=== PATIENT | female | born 1955 | race Caucasian/White ===

== ENCOUNTER 2022-03-31 07:36 | Inpatient (IN) | payer MEDICARE, SELFPAY ==
[2022-03-31] VITALS (22 sets, daily range): BP systolic 107–174; BP diastolic 75–108; PULSE 87–117; RESP 0–20; TEMP 36.3–37.3; O2SAT 3–100; BMI 32.1
--- NOTE | 2022-03-31 | GALL_PTH ---
PATIENT: JOVITA DREW LOC: MS3 U#:[id number] AGE/SX: 67/F ROOM: [facility] RE03/31/[address]: Dr. Russell Giraldo MD : [id number] BED: 1 DIS: 04/02/2022 SPEC #: [id number] RECD: 04/01/22 08:11 STATUS: DAVE MOSLEYLydia #: [id number] LINA: 03/31/22 00:[address]: Russell Giraldo DEPT: SURGICAL PATHOLOGY RECD BY: Eh Allen ENTERED: 04/01/22 11:47 SP TYPE: CASSY MCCLENDON DR: Dr. Simran Oliveira DO Tissues: Gallbladder, NOS Procedures: Surgery Specimen Level III HEADER OPERATION: Laparoscopic cholecystectomy with IOC PRE-OP DIAGNOSIS: Acute cholecystitis TISSUE SUBMITTED: Gallbladder MICROSCOPIC DIAGNOSIS Gallbladder, cholecystectomy: Acute cholecystitis with denudation of mucosa and cholelithiasis. AM:rqoue 04/02/2022 MICROSCOPIC DESCRIPTION Slides are reviewed. GROSS DESCRIPTION Received is one container labeled with the patient's name and designated gallbladder. The specimen consists of a previously opened gallbladder measuring 8.5 cm in length and 4 cm in diameter. The gallbladder appears to be disrupted. Obvious cystic duct could not be identified. The external surface is pink-ta, smooth and glistening for the most part. Focally it is granular, hemorrhagic and contains cautery artifact. The gallbladder contains a small amount of hemorrhagic ta material. The mucosa is ulcerated and congested. Present in the gallbladder and also in the container are multiple brownish-black multifaceted stones measuring in aggregate 8 x 8 x 2 cm and 0.4 to 0.7 cm in greatest dimension. A few detached fragments of hemorrhagic tissue are also noted in the container. The gallbladder wall measures up to 0.8 cm in thickness. Carding Supervisor sections are submitted in three cassettes. / SJ:roque 04/01/2022 TC:2 CPT: 94104
--- NOTE | 2022-03-31 08:17 | EKG12_ITS ---
Test Reason : ABD PAIN Blood Pressure : / mmHG Vent. Rate : 093 BPM Atrial Rate : 093 BPM P-R Int : 158 ms QRS Dur : 072 ms QT Int : 382 ms P-R-T Axes : 017 -01 -07 degrees QTc Int : 474 ms Normal sinus rhythm Normal ECG Confirmed by DONG GUTIERREZ, ANY ([id number]), newspaper photo editor KERI MANTILLA ([id number]) on 04/01/2022 9:21:34 AM Referred By: ALIDA Confirmed By:ANY UMANA MD
--- NOTE | 2022-03-31 08:18 | NURSING ---
NO OLD EKGS
[2022-03-31] MEDS: Ondansetron 4 MG/2 ML Vial IV ×2 (08:30→22:29)
[2022-03-31] MEDS: 0.9% Normal Saline 1,000 ML 1000 ML IV (08:30)
--- NOTE | 2022-03-31 08:34 | US_ITS ---
STUDY: ABDOMINAL ULTRASOUND - RIGHT UPPER QUADRANT REASON FOR VISIT: Female, 67 years old RUQ pain, vomiting TECHNIQUE: Ultrasound evaluation of the right upper quadrant was performed with real-time and static edwards-scale imaging. TECHNICAL QUALITY: Adequate. COMPARISON: None. FINDINGS: Liver: The liver is enlarged and measures 18.4 cm. There is increased echogenicity consistent with fatty infiltration. The bile ducts are within normal limits. There is hepatic color flow. The direction of portal flow is hepatopetal. There is no demonstrated mass lesion. Gallbladder: Normal distended gallbladder. The gallbladder wall is thickened and measures 4.2 mm. There is a positive sonographic Bae''s sign. There is a trace of pericholecystic fluid. There are multiple echogenic structures within the gallbladder, consistent with multiple gallstones. Small amount of sludge is seen within the gallbladder lumen. Common Bile Duct (C.B.D.): The common bile duct measures 4.9 mm. Pancreas: Normal size of the head, body and tail of the pancreas. There is normal echogenicity of the pancreas. There is no demonstrated pancreatic mass or cyst. Right Kidney: Normal size of the right kidney. The right kidney measures 10.2 cm x 5.2 cm x 4.9 cm. Normal renal cortex. The right cortex measures 2.2 cm. There is a 1.9 cm x 2.1 cm x 2.2 cm right renal cyst. There is no right hydronephrosis. US/Gallbladder IMPRESSION: Mild hepatomegaly and fatty infiltration of the liver. Multiple gallstones. Thickened gallbladder wall. Small amount of pericholecystic fluid. Right renal cyst. Electronically Signed: Jeremy Velazquez MD at 9:57 EDT ,
[2022-03-31 08:39] LABS: Absolute Lymphocyte Count 1.67 X10^3/uL (0.83-4.51); Absolute Neutrophil Count 11.6 X10^3/uL (2.0-7.7); Basophil# 0.05 X10^3/uL; Basophil% 0.3 % (0-1); Eosinophil# 0.01 X10^3/uL; Eosinophils% 0.1 % (0-5); Hematocrit 45.5 % (37-47); Hemoglobin 15.3 g/dL (12.0-15.0); Lymphocyte # 1.67 X10^3/ul (0.83-4.51); Lymphocyte % 11.6 % (19-41); Mean Corp Hgb Conc 33.6 g/dL (32-36); Mean Corpuscular Hgb 31.8 pg (27.0-32.0); Mean Corpuscular Volume 94.6 fL (81-99); Mean Platelet Vol. 10.9 fl (6.2-12.0); Monocyte# 1.07 X10^3/uL; Monocyte% 7.4 % (0-10); NRBC Flagged by Analyzer 0 % (0-5); Neutrophil # 11.58 X10^3/uL (2.7-7.7); Neutrophil % 80.3 % (47-70); POSITIVE COUNT YES; RBC Distribution Width CV 12.7 % (11.6-14.6); Red Blood Count 4.81 M/mm3 (4.2-5.4); White Blood Count 14.4 K/mm3 (4.4-11.0)
[2022-03-31] MEDS: Morphine 4 MG/ML Syringe IV ×2 (08:40→10:51)
[2022-03-31 08:42] LABS: Differential Indicated SCAN CRITERIA MET
[2022-03-31 08:56] LABS: ALB/GLOB Ratio 0.8 RATIO (0.9-2.4); AST(SGOT) 118 U/L (15-37); Alanine Aminotransfer ALT/SGPT 68 U/L (13-56); Albumin, Serum 3.8 g/dL (3.2-5.0); Alkaline Phosphatase 145 U/L (45-117); Anion Gap 6 (5-15); BUN 10 mg/dL (7-18); BUN/Creat Ratio 11.4 RATIO (10-20); Calcium,Total 9.7 mg/dL (8.5-10.1); Chloride 100 mmol/L (98-107); Creatinine, Serum 0.88 mg/dL (0.55-1.02); EST Glomerular Filtration Rate 68 mL/min (>60); Est Glom Filt Rate - Afr Amer 83 mL/min (>60); Estimated Creatinine Clearance 49.74 ml/min; Globulin 4.6 g/dL (2.2-4.2); Glucose 180 mg/dL (74-106); Lipase 97 U/L (73-393); Potassium 3.7 mmol/L (3.5-5.1); Protein, Total 8.4 g/dL (6.4-8.2); Sodium Level 136 mmol/L (136-145); Troponin-I HS 4 pg/mL (3.0-54.0)
[2022-03-31 10:00] LABS: Mucous, Urine 0 SEEN /hpf (<or=2+); Red Blood Cells-Urine 0 SEEN /hpf (0-5); Squamous Epithelial Cells - UA 0 SEEN /hpf (5-10)
[2022-03-31 10:08] LABS: Color, Urine Yellow (Yellow); Glucose, Dipstick Normal (Normal); Leukocyte Esterase-Dipstick 25 /ul (Negative); Nitrite-Dipstick Negative (Negative); Occult Blood-Urine Negative /ul (Negative); Protein-Dipstick 30 mg/dl (Negative); Specific Gravity, Urine 1.015 (1.002-1.030); Urine Bilirubin Dipstick Negative (Negative); Urine Clarity Clear (Clear); Urine Urobilinogen 12 mg/dl (Normal)
[2022-03-31 10:12] LABS: Ketone-Dipstick 150 mg/dl (Negative)
[2022-03-31 10:14] LABS: Bacteria RARE /hpf (None Seen); White Blood Cells 0-5 SEEN /hpf (0-5)
[2022-03-31 10:15] LABS: Amorphous Sediment 1+
[2022-03-31] MEDS: 0.9% Normal Saline 1,000 ML 150 ML IV ×2 (10:51→20:00)
--- NOTE | 2022-03-31 11:05 | EDS_ITS ---
HPI HPI - GI History of Present Illness Chief Complaint: Abd Pain Informant: patient Narrative Narrative: Patient is a 67-year-old female that denies any significant past medical history presenting with worsening epigastric and right upper quadrant abdominal pain. She states been going on for the past 3 to 4 days. She is had associated sweating. She did take a home COVID test that was negative. She denies any change in bowel movements. Describes the pain as a pressure. Denies any blood in her vomit or her stool. Denies any significant chest pain itself. Has never had a thing like this before. Does have a history of prior left salpingo- oophorectomy but denies any other abdominal surgery. No other complaints at this time. [facility] Medical History Seasonal allergies Home Medications albuterol sulfate 90 mcg/actuation aerosol inhaler 2 puff inhalation PRN PRN sob/wheezing 03/31/22 [History Last Taken Unknown] loratadine-pseudoephedrine ER 10 mg-240 mg tablet,extended [id number] (Loratadine-D) 1 tab PO DAILY 03/31/22 [History Last Taken Unknown] valacyclovir 500 mg tablet 1 tab PO PRN PRN herpes 03/31/22 [History Last Taken Unknown] Allergy/AdvReac Type Severity Reaction Status Date / Time Penicillins Allergy FROM Verified 03/31/22 07:38 CHILDHOOD Surgical History H/O tubal ligation Hx of breast reduction, elective Hx of tonsillectomy Social History Smoking Status: Never smoker ROS ROS ED Constitutional Constitutional ED: Reports chills and sweats; Denies fever(s) ENT ENT ED: Denies rhinorrhea or sore throat Cardiovascular Cardiovascular: Denies chest pain or palpitations Respiratory/Chest Respiratory/Chest: Denies cough or dyspnea Gastrointestinal Gastrointestinal: Reports abdominal pain, nausea and vomiting; Denies constipation or diarrhea Genitourinary Genitourinary ED: Denies dysuria or hematuria Musculoskeletal Musculoskeletal: Denies arthralgias or myalgias Integumentary Denies rash Neurologic Neurologic: Denies headache(s) or weakness Psychiatric Psychiatric: Denies anxiety Hematologic/Lymphatic Hematologic/Lymphatic: Denies easy bleeding or easy bruising EXAM Physical Exam Const Vital Signs: 03/31/22 07:38 03/31/22 09:46 Temperature 97.4 F L Temperature Source Temporal Pulse Rate 114 H 92 Respiratory Rate 17 20 H Blood Pressure 134/104 H 174/105 H Blood Pressure Mean 114 128 Pulse Ox 98 92 Oxygen Delivery Method Room Air Room Air Positive well nourished and well developed Constitutional Narrative: Uncomfortable appearing, retching in the emergency room General Appearance ED: well developed HEENT Reports dry mucous membranes normocephalic and atraumatic Mouth ED: Yes dry mucous membranes Mouth: dry mucous membranes Eyes PERRL Neck supple Resp normal respiratory effort and clear to auscultation bilaterally Cardio regular rate, regular rhythm and no murmurs GI non-distended Inspection: Negative for abdominal distention Auscultation: hypoactive bowel sounds Palpation: tender epigastric, RUQ and Bae's sign and guarding; Negative for rigid or rebound tenderness present Back/Spine no CVA tenderness Neuro moves all extremities and no sensory deficits noted Motor Exam: Negative for general weakness Psych mental status grossly normal and thought process normal Skin no wounds Rashes: no rashes MDM MDM MDM Narrative Medical decision making narrative: Patient is evaluated for 3 to 4 days of worsening right upper quadrant epigastric abdominal pain. Patient peers uncomfortable upon initial exam. She is given IV fluids, morphine and Zofran. She does have some improvement of her symptoms. Cardiac as well as GI work-up obtained. She does have a leukocytosis of 14.4. She slightly hemoconcentrated with a hemoglobin of 15.3. BMP is normal however liver panel does show an elevated total bili of 2.8 as well as a transaminitis and an elevated alkaline phosphatase. High since he troponin is 4 and EKG is normal. I do not suspect ACS as a cause of her symptoms. Ketones are elevated in her urine however no signs of infection in the urine. Right upper quadrant ultrasound is concerning for cholecystitis as she has multiple gallstones, thickened gallbladder wall and pericholecystic fluid. No comment on dilated common bile duct however with an elevated bili and transaminitis I am concerned that she could have choledocholithiasis. Patient is placed on cefepime as she does have a penicillin allergy and consult to surgery obtained. Dr. Janel Grace evaluated the patient in the ER and will admit to his service for further management. Patient is redosed with morphine in the emergency room and started on maintenance fluids. She is kept NPO. Will be admitted to the hospital. Lab Data Attestation: I reviewed the patient's lab results. Labs: Laboratory Results - last 24 hr 03/31/22 03/31/22 03/31/22 08:00 08:00 09:55 WBC 14.4 H RBC 4.81 Hgb 15.3 H Hct 45.5 MCV 94.6 MCH 31.8 MCHC 33.6 RDW Std Deviation 44.0 H RDW Coeff of Pepper 12.7 Plt Count TNP MPV 10.9 Immature Gran % (Auto) 0.300 Neut % (Auto) 80.3 H Lymph % (Auto) 11.6 L [place] % (Auto) 7.4 Eos % (Auto) 0.1 Baso % (Auto) 0.3 Absolute Neuts (auto) 11.6 H Absolute Lymphs (auto) 1.67 Nucleated RBC % 0 Sodium 136 Potassium 3.7 Chloride 100 Carbon Dioxide 30.0 Anion Gap 6 BUN 10 Creatinine 0.88 Estim Creat Clear Calc 49.74 Est GFR (MDRD) Af Amer 83 Est GFR (MDRD) Non-Af 68 BUN/Creatinine Ratio 11.4 Glucose 180 H Calcium 9.7 Total Bilirubin 2.80 H AST 118 H ALT 68 H Alkaline Phosphatase 145 H Troponin I High Sens 4 Total Protein 8.4 H Albumin 3.8 Globulin 4.6 H Albumin/Globulin Ratio 0.8 L Lipase 97 Urine Color Yellow Urine Clarity Clear Urine pH 8.0 Ur Specific [place] 1.015 Urine Protein 30 H Urine Glucose (UA) Normal Urine Ketones 150 A* Urine Occult Blood Negative Urine Nitrite Negative Urine Bilirubin Negative Urine Urobilinogen 12 H Ur Leukocyte Esterase 25 H Urine RBC 0 SEEN Urine WBC 0-5 SEEN Ur Squamous Epith Cells 0 SEEN Amorphous Sediment 1+ Urine Bacteria RARE Urine Mucus 0 SEEN Radiography Diagnostic Testing: Clinical Impression(s) from Imaging Studies Gallbladder Ultrasound 03/31/22 08:34 IMPRESSION: Mild hepatomegaly and fatty infiltration of the liver. Multiple gallstones. Thickened gallbladder wall. Small amount of pericholecystic fluid. Right renal cyst. Electronically Signed: Jeremy Velazquez MD at 9:57 EDT , Rhythm Strip Rhythm Strip: Sinus Rhythm Rate: 93 Ectopy: None EKG Initial EKG: Attestation: I personally reviewed and interpreted this EKG as follows: Interpretation: Sinus Rhythm Comments: Normal sinus rhythm at a rate of 93 Normal axis Normal intervals Normal ST segments Discharge Plan Triage Chief Complaint: Abd Pain ED Provider: Antonietta Bocanegra Dx/Rx/DC Orders Clinical Impression: Choledocholithiasis, Transaminitis, Elevated bilirubin, Abdominal pain, acute, right upper quadrant Prescriptions: No Action valacyclovir 500 mg tablet 1 tab PO PRN PRN (Reason: herpes) Label Comments: TAKE 1 TABLET BY MOUTH EVERY 12 HOURS FOR 3 TO 5 DAYS NEEDED AT ONSET OF SYMPTOMS loratadine-pseudoephedrine [Loratadine-D] 10-240 mg tablet extended release 24 hr 1 tab PO DAILY albuterol sulfate 90 mcg/actuation HFA aerosol inhaler 2 puff INHALATION PRN PRN (Reason: sob/wheezing) Primary Care Provider: Simran Oliveira Referrals: Simran Oliveira DO [Primary Care Provider] - Disposition Disposition: Acute Care [facility]
--- NOTE | 2022-03-31 11:10 | PCM.HP.STD ---
HPI - General HPI Narrative JOVITA DREW, is a 67 F who presents with abdominal pain. The patient reports has been having epigastric and right upper quadrant pain for at least 6 days. She says it is getting worse and is building. She has nausea and dry heaves. Patient does not note any fevers or chills. [facility] Medical History Seasonal allergies Home Medications albuterol sulfate 90 mcg/actuation aerosol inhaler 2 puff inhalation PRN PRN sob/wheezing 03/31/22 [History Last Taken Unknown] loratadine-pseudoephedrine ER 10 mg-240 mg tablet,extended [id number] (Loratadine-D) 1 tab PO DAILY 03/31/22 [History Last Taken Unknown] valacyclovir 500 mg tablet 1 tab PO PRN PRN herpes 03/31/22 [History Last Taken Unknown] Allergy/AdvReac Type Severity Reaction Status Date / Time Penicillins Allergy FROM Verified 03/31/22 07:38 CHILDHOOD Surgical History H/O tubal ligation Hx of breast reduction, elective Hx of tonsillectomy Social History Smoking Status: Never smoker ROS Constitutional Constitutional: Denies anorexia, fatigue or fever(s) Eyes Eyes: Denies blurry vision ENT HEENT: Denies abnormal hearing Cardiovascular Cardiovascular: Denies chest pain Respiratory/Chest Respiratory/Chest: Denies cough or dyspnea Gastrointestinal Gastrointestinal: Reports abdominal pain, nausea and vomiting; Denies constipation, diarrhea, melena or rectal bleeding Genitourinary Genitourinary: Denies change in urinary stream Musculoskeletal Musculoskeletal: Denies abnormal gait Integumentary Integumentary: Denies jaundice or new lesions Neurologic Neurologic: Denies abnormal gait Psychiatric Psychiatric: Denies anxiety Endocrine Endocrinology: Denies flushing Hematologic/Lymphatic Hematologic/Lymphatic: Denies easy bleeding Vital Signs Vital Signs Vital Signs: 03/31/22 07:38 03/31/22 09:46 Temperature 97.4 F L Temperature Source Temporal Pulse Rate 114 H 92 Respiratory Rate 17 20 H Blood Pressure 134/104 H 174/105 H Blood Pressure Mean 114 128 Pulse Ox 98 92 Oxygen Delivery Method Room Air Room Air Weight Weight: 175 lb 11.335 oz Body Mass Index (BMI) 32.1 Physical Exam Const oriented x3 Resp normal respiratory effort Cardio regular rate and regular rhythm GI soft to palpation Palpation: tender epigastric, RUQ and Bae's sign Extremity normal to inspection Results Lab / Micro Data Result Diagrams: 03/31/22 08:00 03/31/22 08:00 Labs: Laboratory Results - last 24 hr 03/31/22 08:00: WBC 14.4 H, RBC 4.81, Hgb 15.3 H, Hct 45.5, MCV 94.6, MCH 31.8, MCHC 33.6, RDW Std Deviation 44.0 H, RDW Coeff of Pepper 12.7, Plt Count TNP, MPV 10.9, Immature Gran % (Auto) 0.300, Neut % (Auto) 80.3 H, Lymph % (Auto) 11.6 L, [place] % (Auto) 7.4, Eos % (Auto) 0.1, Baso % (Auto) 0.3, Absolute Neuts (auto) 11.6 H, Absolute Lymphs (auto) 1.67, Nucleated RBC % 0 03/31/22 08:00: Sodium 136, Potassium 3.7, Chloride 100, Carbon Dioxide 30.0, Anion Gap 6, BUN 10, Creatinine 0.88, Estim Creat Clear Calc 49.74, Est GFR (MDRD) Af Amer 83, Est GFR (MDRD) Non-Af 68, BUN/Creatinine Ratio 11.4, Glucose 180 H, Calcium 9.7, Total Bilirubin 2.80 H, AST 118 H, ALT 68 H, Alkaline Phosphatase 145 H, Troponin I High Sens 4, Total Protein 8.4 H, Albumin 3.8, Globulin 4.6 H, Albumin/Globulin Ratio 0.8 L, Lipase 97 03/31/22 09:55: Urine Color Yellow, Urine Clarity Clear, Urine pH 8.0, Ur Specific [place] 1.015, Urine Protein 30 H, Urine Glucose (UA) Normal, Urine Ketones 150 A*, Urine Occult Blood Negative, Urine Nitrite Negative, Urine Bilirubin Negative, Urine Urobilinogen 12 H, Ur Leukocyte Esterase 25 H, Urine RBC 0 SEEN, Urine WBC 0-5 SEEN, Ur Squamous Epith Cells 0 SEEN, Amorphous Sediment 1+, Urine Bacteria RARE, Urine Mucus 0 SEEN Micro: Microbiology 03/31/22 08:40 Nasal Secretion SARS-CoV-2 Antigen (Rapid) - Final Radiology Impression Gallbladder Ultrasound 03/31/22 08:34 IMPRESSION: Mild hepatomegaly and fatty infiltration of the liver. Multiple gallstones. Thickened gallbladder wall. Small amount of pericholecystic fluid. Right renal cyst. Electronically Signed: Jeremy Velazquez MD at 9:57 EDT , Assessment & Plan Assessment/Plan (1) Acute cholecystitis: PLAN: The patient has ultrasound showing thickened gallbladder with cholelithiasis and sludge in the gallbladder. She likely has acute cholecystitis with possible choledocholithiasis. Her AST and ALT are normal and her bilirubin is elevated and this may indicate that she recently passed a stone. I recommend laparoscopic cholecystectomy with cholangiography. I also discussed possible partial cholecystectomy due to the length of symptomatology and the amount of inflammation. I did discuss that this may necessitate ERCP with stent placement. I also discussed that she may need ERCP if there are stones on the cholangiogram. I discussed the procedure in detail with the patient. I discussed the risks, benefits, and alternatives of the procedure. I discussed the risks including but not limited to bleeding, infection, injury to surrounding organs such as the liver, bile duct, bowels. I did discuss the possibility of having to convert to an open procedure as well as the possibility that if any injuries occurred this may necessitate further surgery at a tertiary care center. Russell Giraldo MD Pager: [facility] [address] [place] [address], [address] [place] [address] Office:
--- NOTE | 2022-03-31 11:11 | NURSING ---
MED SURG [facility] CHOLEDOCHOLITHIASIS
[2022-03-31 11:59] LABS: Basophil 0 % (0-1); Blast 0 % (0-0); Eosinophil 0 % (0-5); Lymphocyte 0 % (19-41); Metamyelocyte 0 % (0-1); Monocyte 0 % (0-10); Myelocyte 0 % (0-0); Neutrophil-Band 0 % (0-5); Neutrophil-Segmented 0 % (47-70); Other WBC Type 0 %; Plasma Cell 0 %; Promyelocyte 0 % (0-0); Total Cells Counted 0 (MANUAL DIFF)
[2022-03-31 12:00] LABS: POSITIVE DIFFERENTIAL YES
--- NOTE | 2022-03-31 13:20 | RAD_ITS ---
HISTORY: pre op. TECHNIQUE: XR Chest 1 View. COMPARISON: None. FINDINGS: CARDIOMEDIASTINAL BORDERS: Cardiac silhouette within normal limits in size. Tortuous aorta. LUNGS: Low lung volumes with mild linear and patchy bibasilar opacities. PLEURA: No pleural effusion or pneumothorax seen. OSSEOUS STRUCTURES: Unremarkable. RAD/Chest 1 View (Portable) IMPRESSION: Mild bibasilar atelectasis or inflammation. Electronically Signed: Saba Willett MD at 13:43 EDT ,
--- NOTE | 2022-03-31 14:40 | NURSING ---
pt to surgery
[2022-03-31] MEDS: Clindamycin 900 MG/50 ML BAG 75 MG IV (15:37)
--- NOTE | 2022-03-31 15:50 | RAD_ITS ---
CLINICAL HISTORY: Female, 67 years old. Abdominal pain PROCEDURE: CHOLANGIOGRAM - intraoperative FLUOROSCOPY TIME (if supplied): (0:50) minutes/seconds TECHNIQUE: (All elements of maximal sterile barrier technique followed, including US elements as applicable) A cannula is seen within the cystic duct remnant in a cine run of a mid Intraop Cholangiogram spelled for interpretation. FINDINGS: There are 2 filling defects within the distal common bile duct worrisome for choledocholithiasis. There is passage from the skull around the stones through the ampulla into the duodenum. RAD/Cholangiogram/ O R,Initial IMPRESSION: Suspect 2 stones in the distal common bile duct. Electronically Signed: Quan Romero MD at 17:14 EDT ,
[2022-03-31] MEDS: Bupivacaine 0.25% 30 ML Vial (17:22)
--- NOTE | 2022-03-31 17:25 | PCM.OPRPT ---
Report of Operation Date of Procedure: 03/31/22 Pre-Operative Diagnosis: Acute cholecystitis Post-Operative Diagnosis: Acute cholecystitis and choledocholithiasis Surgery/Procedure Performed:: Laparoscopic cholecystectomy with cholangiogram Specimen's removed: Gallbladder and stones Drains: YAEL to bulb suction Description of Procedure: After obtaining informed consent patient was brought back to the operating room. General anesthesia was induced. The abdomen was prepped and draped in usual sterile fashion. A small midline incision was made superior to the umbilicus and deepened to the level of fascia. The fascia was elevated and incised. Next the peritoneum was elevated and incised in the same fashion. Finger sweep was performed and the Ward trocar was placed into the abdomen. The balloon was inflated. The abdomen was inflated to 15 mmHg. Next a camera was introduced into the abdomen and the abdomen was inspected. Next under direct visualization three 5-mm ports were placed one subxiphoid and 2 subcostal. Next the gallbladder was elevated and retracted toward the right shoulder. The peritoneum was stripped from the gallbladder. The infundibulum was located and retracted laterally. The gallbladder was extremely inflamed. The epigastric port was upsized to a 12 mm port. It was aspirated of its contents but this still allowed for minimal grasping. Next the triangle of Calot was dissected and the cystic duct and cystic artery were identified. Cholangiograms were performed. A small alyssa was made in the cystic duct and then a small alyssa was made right upper quadrant and a Ranfac catheter was placed in the abdomen is into the cystic duct. A clip was placed over this. Under fluoroscopy contrast was instilled into the gallbladder and the common duct, cystic duct as well as proximal hepatic ducts were identified. There was good filling of the duodenum. There were 2 large filling defects noted in the common bile duct. The clip was removed as well as the Ranfac and the infundibulum was grasped once more. Three hemolock clips were placed across the cystic duct. The cystic duct was then divided leaving 2 clips on the stump. The cystic artery was clipped and divided in the same fashion. The hook cautery was then used to take the gallbladder off of the gallbladder bed. Hemostasis was obtained. There was spillage of a lot of stones and these were retrieved and placed into the bag. There was some bleeding in the proximal gallbladder fossa and a Surgicel sheet was placed there and this provided good hemostasis. Gallbladder fossa was irrigated and no active bleeding or bile leakage was noted. A drain was then placed through the lateral port and placed into the gallbladder fossa and sutured to the skin. Next the camera was introduced in the subxiphoid port. An Endopouch bag was placed through the umbilical port and the gallbladder was placed into it. The gallbladder was then removed through the umbilical incision. The camera was then reinserted through the umbilical port. The gallbladder fossa was inspected once more and noted to be hemostatic with no leaking bile. The abdomen was suctioned dry. The 12 mm port epigastric port was removed. Using a Kenney Tilley needle and 0 Vicryl suture was used to close the fascia in this incision. The 5 mm ports were removed under direct visualization. The umbilical port was then removed and the air was removed from the abdomen. Next using an 0 Vicryl suture the umbilical fascia was closed in a [id number] fashion. The umbilical port site was irrigated local anesthetic was administered to all the incisions. All the incisions were closed with interrupted subcuticular 4-0 Monocryl sutures followed by Steri-Strips and dressings. The patient was awoken and taken to PACU in stable condition. Patient will be scheduled for ERCP with stone removal tomorrow. Admit VTE Documentation VTE Mechan Device Prophylaxis: SCD's
[2022-03-31] MEDS: Morphine 2 MG/ML Syringe IV (22:40)
[2022-04-01] VITALS (11 sets, daily range): BP systolic 101–125; BP diastolic 64–81; PULSE 73–103; RESP 16–18; TEMP 36.6–36.9; O2SAT 92–100; BMI 32.1
[2022-04-01] MEDS: 0.9% Normal Saline 1,000 ML 150 ML IV ×3 (03:00→23:09)
[2022-04-01 04:32] LABS: Absolute Lymphocyte Count 0.68 X10^3/uL (0.83-4.51); Absolute Neutrophil Count 9.5 X10^3/uL (2.0-7.7); Basophil# 0.01 X10^3/uL; Basophil% 0.1 % (0-1); Hemoglobin 12.2 g/dL (12.0-15.0); Lymphocyte # 0.68 X10^3/ul (0.83-4.51); Lymphocyte % 6.5 % (19-41); Mean Corp Hgb Conc 34.9 g/dL (32-36); Mean Corpuscular Hgb 33.4 pg (27.0-32.0); Mean Corpuscular Volume 95.9 fL (81-99); Mean Platelet Vol. 11.2 fl (6.2-12.0); Monocyte# 0.28 X10^3/uL; Monocyte% 2.7 % (0-10); NRBC Flagged by Analyzer 0 % (0-5); Neutrophil # 9.45 X10^3/uL (2.7-7.7); Neutrophil % 90.4 % (47-70); Platelet Count 144 K/mm3 (150-450); RBC Distribution Width CV 13.2 % (11.6-14.6); RBC Distribution Width SD 46.9 fl (35.1-43.9); Red Blood Count 3.65 M/mm3 (4.2-5.4); White Blood Count 10.5 K/mm3 (4.4-11.0)
[2022-04-01 04:56] LABS: ALB/GLOB Ratio 0.7 RATIO (0.9-2.4); AST(SGOT) 279 U/L (15-37); Alanine Aminotransfer ALT/SGPT 254 U/L (13-56); Albumin, Serum 2.7 g/dL (3.2-5.0); Alkaline Phosphatase 142 U/L (45-117); Anion Gap 7 (5-15); BUN 11 mg/dL (7-18); BUN/Creat Ratio 15.5 RATIO (10-20); Calcium,Total 8.3 mg/dL (8.5-10.1); Chloride 106 mmol/L (98-107); Creatinine, Serum 0.71 mg/dL (0.55-1.02); EST Glomerular Filtration Rate 87 mL/min (>60); Est Glom Filt Rate - Afr Amer 106 mL/min (>60); Estimated Creatinine Clearance 43.77 ml/min; Globulin 3.8 g/dL (2.2-4.2); Glucose 154 mg/dL (74-106); Potassium 4.1 mmol/L (3.5-5.1); Protein, Total 6.5 g/dL (6.4-8.2); Sodium Level 139 mmol/L (136-145)
--- NOTE | 2022-04-01 06:34 | PN.SURG_ITS ---
Subjective Subjective Patient reports feeling better. She is not passing flatus. Objective Data Objective Data Vital Signs: Vital Signs Temp Pulse Resp BP Pulse Ox O2 Del Method O2 Flow Rate 97.9 F 81 18 111/80 93 Room Air 2 04/01/22 04:04 04/01/22 04:04 04/01/22 04:04 04/01/22 04:04 04/01/22 04:04 04/01/22 04:04 03/31/22 22:04 Oxygen Flow Rate (L/min) 2 Oxygen Delivery Method Room Air Weight: 176 lb Body Mass Index (BMI) 32.1 Intake & Output: Intake and Output for Last 24 Hours 03/30/22 03/31/22 04/01/22 23:59 23:59 23:59 Intake Total 1747.5 / 1747.5 1000 / 1000 Output Total 10 100 / 100 Balance 1737.5 / 1737.5 900 / 900 Lab / Micro Data Result Diagrams: 04/01/22 03:56 04/01/22 03:56 Labs: Laboratory Results - last 24 hr 03/31/22 08:00: WBC 14.4 H, RBC 4.81, Hgb 15.3 H, Hct 45.5, MCV 94.6, MCH 31.8, MCHC 33.6, RDW Std Deviation 44.0 H, RDW Coeff of Pepper 12.7, Plt Count TNP, MPV 10.9, Immature Gran % (Auto) 0.300, Neut % (Auto) 80.3 H, Lymph % (Auto) 11.6 L, Lucas % (Auto) 7.4, Eos % (Auto) 0.1, Baso % (Auto) 0.3, Absolute Neuts (auto) 11.6 H, Absolute Lymphs (auto) 1.67, Total Counted 0, Neutrophils % (Manual) 0 L , Band Neutrophils % 0, Lymphocytes % (Manual) 0 L, Monocytes % (Manual) 0, Eosinophils % (Manual) 0, Basophils % (Manual) 0, Metamyelocytes % 0, Myelocytes % 0, Promyelocytes % 0, Blast Cells % 0, Plasma Cell % (Manual) 0, Other Cells % 0, Nucleated RBC % 0 03/31/22 08:00: Sodium 136, Potassium 3.7, Chloride 100, Carbon Dioxide 30.0, Anion Gap 6, BUN 10, Creatinine 0.88, Estim Creat Clear Calc 49.74, Est GFR (MDRD) Af Amer 83, Est GFR (MDRD) Non-Af 68, BUN/Creatinine Ratio 11.4, Glucose 180 H, Calcium 9.7, Total Bilirubin 2.80 H, AST 118 H, ALT 68 H, Alkaline Phosphatase 145 H, Troponin I High Sens 4, Total Protein 8.4 H, Albumin 3.8, Globulin 4.6 H, Albumin/Globulin Ratio 0.8 L, Lipase 97 03/31/22 09:55: Urine Color Yellow, Urine Clarity Clear, Urine pH 8.0, Ur Specific [place] 1.015, Urine Protein 30 H, Urine Glucose (UA) Normal, Urine Ketones 150 A*, Urine Occult Blood Negative, Urine Nitrite Negative, Urine Bilirubin Negative, Urine Urobilinogen 12 H, Ur Leukocyte Esterase 25 H, Urine RBC 0 SEEN, Urine WBC 0-5 SEEN, Ur Squamous Epith Cells 0 SEEN, Amorphous Sediment 1+, Urine Bacteria RARE, Urine Mucus 0 SEEN 04/01/22 03:56: WBC 10.5, RBC 3.65 L, Hgb 12.2, Hct 35.0 L, MCV 95.9, MCH 33.4 H , MCHC 34.9, RDW Std Deviation 46.9 H, RDW Coeff of Pepper 13.2, Plt Count 144 L, MPV 11.2, Immature Gran % (Auto) 0.300, Neut % (Auto) 90.4 H, Lymph % (Auto) 6.5 L, Lucas % (Auto) 2.7, Eos % (Auto) 0.0, Baso % (Auto) 0.1, Absolute Neuts (auto) 9.5 H, Absolute Lymphs (auto) 0.68 L, Nucleated RBC % 0 04/01/22 03:56: Sodium 139, Potassium 4.1, Chloride 106, Carbon Dioxide 26.0, Anion Gap 7, BUN 11, Creatinine 0.71, Estim Creat Clear Calc 43.77, Est GFR (MDRD) Af Amer 106, Est GFR (MDRD) Non-Af 87, BUN/Creatinine Ratio 15.5, Glucose 154 H, Calcium 8.3 L, Total Bilirubin 5.00 H, AST 279 H, ALT 254 H, Alkaline Phosphatase 142 H, Total Protein 6.5, Albumin 2.7 L, Globulin 3.8, Albumin/Globulin Ratio 0.7 L Micro: Microbiology 03/31/22 08:40 Nasal Secretion SARS-CoV-2 Antigen (Rapid) - Final Radiography Diagnostic Testing: Radiology Impression Gallbladder Ultrasound 03/31/22 08:34 IMPRESSION: Mild hepatomegaly and fatty infiltration of the liver. Multiple gallstones. Thickened gallbladder wall. Small amount of pericholecystic fluid. Right renal cyst. Electronically Signed: Jeremy Velazquez MD at 9:57 EDT , Chest X-Ray 03/31/22 13:20 IMPRESSION: Mild bibasilar atelectasis or inflammation. Electronically Signed: Saba Willett MD at 13:43 EDT , Cholangiogram 03/31/22 15:50 IMPRESSION: Suspect 2 stones in the distal common bile duct. Electronically Signed: Quan Romero MD at 17:14 EDT , Rhythm Strip Rhythm Strip: Sinus Rhythm Rate: 93 Ectopy: None Physical Exam Const oriented x3 and no apparent distress Resp normal respiratory effort Cardio regular rate and regular rhythm GI soft to palpation Palpation: tender RUQ Assessment & Plan Assessment/Plan (1) Choledocholithiasis: (2) Acute cholecystitis: PLAN: Plan The patient says she is in much less pain than before surgery. On cholangiogram the patient was found to have 2 stones in the common bile duct. I recommended ERCP today. I discussed this with her in detail. I discussed the risks including but not limited to bleeding, infection, perforation of the bile duct or bowel, pancreatitis. I also discussed possible stent placement with her. Patient understands the risks and the procedure and will proceed with ERCP this afternoon. Patient is n.p.o. and IV fluids. Russell Giraldo MD Pager: [facility] [address] [place] [address], [address] [place] [address] Office:
[2022-04-01] MEDS: Clindamycin 900 MG/50 ML BAG 75 MG IV (10:15)
--- NOTE | 2022-04-01 11:14 | OP.ERCP_ITS ---
Patient Name: Elvia Canales Procedure Date: 04/01/2022 9:24 AM Date of : 1955 Age: 67 Procedure: ERCP Indications: Common bile duct stone(s) Providers: Russell Giraldo MD Medicines: General Anesthesia Patient Profile: This is a 67 year old female. Refer to note in patient chart for documentation of history and physical. Complications: No immediate complications. Procedure: Pre-Anesthesia Assessment: - Prior to the procedure, a History and Physical was performed, and patient medications and allergies were reviewed. The patient's tolerance of previous anesthesia was also reviewed. The risks and benefits of the procedure and the sedation options and risks were discussed with the patient. All questions were answered, and informed consent was obtained. Prior Anticoagulants: The patient has taken no previous anticoagulant or antiplatelet agents. After reviewing the risks and benefits, the patient was deemed in satisfactory condition to undergo the procedure. After obtaining informed consent, the scope was passed under direct vision. Throughout the procedure, the patient's blood pressure, pulse, and oxygen saturations were monitored continuously. The Duodenoscope was introduced through the mouth, and advanced to the duodenum and used to inject contrast into the bile duct. The ERCP was accomplished without difficulty. The patient tolerated the procedure well. Scope In: 10:27:37 AM Scope Out: 11:06:04 AM Total Procedure Duration Time 0 hours 38 minutes 27 seconds Findings: A 0.035 inch x 260 cm straight Dreamwire was passed into the biliary tree. The sphincterotome was passed over the guidewire and the bile duct was then deeply cannulated. Contrast was injected. I personally interpreted the bile duct images. There was brisk flow of contrast through the ducts. Image quality was excellent. Contrast extended to the entire biliary tree. The lower third of the main bile duct contained two stones mm. Biliary sphincterotomy was made with a sphincterotome using ERBE electrocautery. There was no post-sphincterotomy bleeding. The biliary tree was swept with a 12 mm balloon starting at the bifurcation. Pus was swept from the duct. All stones were removed. One 10 Fr by 5 cm plastic stent with a single external flap and a single internal flap was placed into the common bile duct. Pus flowed through the stent. The stent was in good position. Impression: - Choledocholithiasis was found. Complete removal was accomplished by biliary sphincterotomy and balloon extraction. - A biliary sphincterotomy was performed. - The biliary tree was swept and pus was found. - One plastic stent was placed into the common bile duct. Recommendation: - [facility]. Procedure Code(s): --- Professional --- 84320, Endoscopic retrograde cholangiopancreatography (ERCP); with placement of endoscopic stent into biliary or pancreatic duct, including pre- and post-dilation and guide wire passage, when performed, including sphincterotomy, when performed, each stent [id number], Endoscopic retrograde cholangiopancreatography (ERCP); with removal of calculi/debris from biliary/pancreatic duct(s) Diagnosis Code(s): --- Professional --- K80.50, Calculus of bile duct without cholangitis or cholecystitis without obstruction CPT copyright 2017 [employer]. All rights reserved. The codes documented in this report are preliminary and upon automotive technician review may be revised to meet current compliance requirements. Russell Giraldo MD 04/01/2022 11:14:26 AM This report has been signed electronically. Number of Addenda: 0 Note Initiated On: 04/01/2022 9:24 AM
--- NOTE | 2022-04-01 11:16 | OP.CCLET_ITS ---
04/01/2022 Simran Oliveira [address] [facility] [place] [address] [place] [address] Re : ERCP procedure for Elvia Canales Dear Dr. Oliveira This procedure was performed on Friday, April 01, 2022. My impressions and recommendations are as follows: Impressions : - Choledocholithiasis was found. Complete removal was accomplished by biliary sphincterotomy and balloon extraction. - A biliary sphincterotomy was performed. - The biliary tree was swept and pus was found. - One plastic stent was placed into the common bile duct. Recommendations : - [facility]. My findings are described in the full procedure note, which is enclosed. If I can be of further assistance, please feel free to contact me at Doctor phone number(s): , Work: . Sincerely, Russell Giraldo MD 04/01/2022 11:14:26 AM This report has been signed electronically.
[2022-04-01] MEDS: Ciprofloxacin 400 MG/200 ML BAG 200 MG IV ×2 (12:57→23:09)
--- NOTE | 2022-04-01 13:05 | CASEMGMT ---
RN ERROL Face to Face with patient for initial transition planning/care coordination assessment. RN CM introduced self and role at [facility]. Patient lying in bed, alert and oriented. Patient willing to participate in assessment and is able to answer all questions appropriately. Care providers, pharmacy, and demographics verified. Patient wishes to discharge home, denies need for home health at this time. Patient states she has no further needs or concerns at this time. CM to follow for discharge planning needs that may arise. PCP: Roxanne Specialists: none Preferred Pharmacy: [facility] [employer] Insurance: [employer] [facility] Prescription Benefit: yes Living Will/HPOA: none, patient would like to complete, SW notified LNOK: Sister, mother Living Arrangements: Patient is staying with mother in a 2 story home. Patient states she is independent at home and able to ambulate stairs. Transportation: self, sister DME/HHC: Patient denies DME or previous HHC. Disposition Plan: Patient to discharge home with family support and follow-up plans in place. Leslie MENDEZN, RN, CM
--- NOTE | 2022-04-01 13:45 | RAD_ITS ---
ERCP INDICATION: Abdominal pain. Fluoroscopy time: 1:02 Images obtained: 5 TECHNIQUE: Fluoroscopy of the abdomen was utilized during ERCP and 5 images are significant for interpretation. FINDINGS: Examination common bile duct demonstrates 2 filling defects within the distal common bile duct worrisome for stones. Balloon sphincterotomy and stent placement was performed. RAD/ERCP Biliary Only IMPRESSION: Suspect choledocholithiasis treated with balloon sphincterotomy and biliary stent placement. Electronically Signed: Quan Romero MD at 12:01 EDT ,
[2022-04-01] MEDS: metroNIDAZOLE 500 MG/100 ML BAG 100 MG IV ×2 (14:21→21:24)
[2022-04-01] MEDS: Loratadine 10 MG Tablet PO (15:03)
[2022-04-01] MEDS: Acetaminophen 325 MG Tablet 650 MG PO (15:07)
[2022-04-02 03:25] VITALS: BP 123/81; PULSE 88; RESP 16; TEMP 36.7; O2SAT 95
[2022-04-02] MEDS: metroNIDAZOLE 500 MG/100 ML BAG 100 MG IV (05:16)
--- NOTE | 2022-04-02 07:48 | PN.SURG_ITS ---
Subjective Subjective Patient feeling well with no nausea or vomiting. Tolerating clears. Objective Data Objective Data Vital Signs: Vital Signs Temp Pulse Resp BP Pulse Ox O2 Del Method O2 Flow Rate 98.1 F 88 16 123/81 H 95 Room Air 2 04/02/22 03:25 04/02/22 03:25 04/02/22 03:25 04/02/22 03:25 04/02/22 03:25 04/02/22 03:25 04/01/22 11:45 Oxygen Flow Rate (L/min) 2 Oxygen Delivery Method Room Air Weight: 176 lb Body Mass Index (BMI) 32.1 Intake & Output: Intake and Output for Last 24 Hours 03/31/22 04/01/22 04/02/22 23:59 23:59 23:59 Intake Total 1747.5 / 1747.5 3875.0 / 3875.0 300 / 300 Output Total 650 / 650 Balance 1737.5 / 1737.5 3225.0 / 3225.0 300 / 300 Lab / Micro Data Result Diagrams: 04/01/22 03:56 04/01/22 03:56 Micro: Microbiology 03/31/22 08:40 Nasal Secretion SARS-CoV-2 Antigen (Rapid) - Final Radiography Diagnostic Testing: Radiology Impression ERCP X-Ray 04/01/22 13:45 IMPRESSION: Suspect choledocholithiasis treated with balloon sphincterotomy and biliary stent placement. Electronically Signed: Quan Romero MD at 12:01 EDT , Rhythm Strip Rhythm Strip: Sinus Rhythm Rate: 93 Ectopy: None Physical Exam Const oriented x3 Resp normal respiratory effort GI soft to palpation and non-tender Assessment & Plan Assessment/Plan (1) Choledocholithiasis: (2) Acute cholecystitis: PLAN: Plan Patient is doing well. She had purulent material in the common bile duct so a stent was placed. I will advance her diet today and remove her drain and if she tolerates this discharge her home later today or tomorrow morning. I will send her home on oral antibiotics for the cholangitis. Russell Giraldo MD Pager: [facility] [address] [place] [address], [address] [place] [address] Office:
--- NOTE | 2022-04-02 07:52 | DS.PCM_ITS ---
Providers Date of Admission: 03/31/22 Primary Care Physician: Dr. Simran Oliveira DO Reason For Visit: ACUTE CHOLECYSTITIS Diagnosis Discharge Diagnosis (1) Choledocholithiasis: Status: Acute Code(s): K80.50 - Calculus of bile duct without cholangitis or cholecystitis without obstruction (2) Acute cholecystitis: Status: Acute Code(s): K81.0 - Acute cholecystitis (3) Cholangitis: Status: Acute Code(s): K83.09 - Other cholangitis Plan Patient is doing well. She had purulent material in the common bile duct so a stent was placed. I will advance her diet today and remove her drain and if she tolerates this discharge her home later today or tomorrow morning. I will send her home on oral antibiotics for the cholangitis. Russell Giraldo MD Pager: [facility] [address] [place] [address], [address] [place] [address] Office: Medications at Discharge Home Medications albuterol sulfate 90 mcg/actuation aerosol inhaler 2 puff inhalation PRN PRN sob/wheezing 03/31/22 loratadine-pseudoephedrine ER 10 mg-240 mg tablet,extended [id number] (Loratadine-D) 1 tab PO DAILY allergies 03/31/22 valacyclovir 500 mg tablet 1 tab PO PRN PRN herpes 03/31/22 acetaminophen 325 mg tablet (Tylenol) 650 mg PO Q4H PRN PRN PAIN 1-10/FEVER #0 tabs 04/02/22 ciprofloxacin HCl 500 mg tablet (Cipro) 500 mg PO BID #10 tabs 04/02/22 ibuprofen 600 mg tablet 600 mg PO Q6H PRN PRN Pain 1-10 Or Fever #0 tabs 04/02/22 metronidazole 500 mg tablet 500 mg PO Q8H #15 tabs 04/02/22 Hospital Course Operations cholecystecomy and ERCP Procedures None Summary of Care Provided Hospital Course: The patient was admitted with acute cholecystitis and taken for surgery. During surgery the patient had a very inflamed gallbladder and cholangiogram revealed common bile duct stones. The following day she was taken for ERCP and the stones were removed and stent was placed and there was purulent material in the common bile duct. She was started on IV antibiotics and advance to clears. When she tolerated clears she was advanced to regular diet. Once tolerating this her drain was removed and she was discharged home. Weight / BMI Weight Weight: 176 lb Body Mass Index (BMI) 32.1 ABG / Lab / Microbiology Data Result Diagrams: 04/01/22 03:56 04/01/22 03:56 Microbiology: Microbiology 03/31/22 08:40 Nasal Secretion SARS-CoV-2 Antigen (Rapid) - Final Radiography Diagnostic Testing: Radiology Impression ERCP X-Ray 04/01/22 13:45 IMPRESSION: Suspect choledocholithiasis treated with balloon sphincterotomy and biliary stent placement. Electronically Signed: Quan Romero MD at 12:01 EDT , D/C Instructions Discharge Diet: Light diet - advance as tolerated Discharge Activity: May Drive (for 2-3 days or while taking narcotic pain medications.) and - (Do not drive, work heavy equipment or sign legal documents for 24 hours.) May shower in (days): 1 Lifting Restrictions: 20 lbs for 2 weeks Additional Activity Instructions: Pain medication may cause nausea. You should typically eat light foods as you take your pain medications. Pain medication may cause constipation. If this is a problem for you, please discuss with your doctor. Call your doctor if your incision/area has: Continuous Slow Oozing, Sudden Increased Bleeding, Increased Pain/ Swelling, Increased Redness and Foul Smelling Discharge Call your doctor if you observe: Fever of 101 or Higher Suture Line Care: Avoid Pulling/Pushing and Avoid Pinching/Bending Remove Dressing in: 2 days Cleanse incision/area with: Soap & Water Additional Dressing/Incision Instructions: Leave operative bandaids on for 2 days. When you remove dressing, leave Steri-Strips on until your follow-up appointment, or until the Steri-Strips fall off on their own. Please Follow Up With: Russell Giraldo MD When: Please call to schedule 2 week follow up appointment at [phone] Meaningful Use Info Meaningful Use Diagnoses (Choose all that apply): None applicable Discharge Plan Admission Admit Date/Time: 03/31/22 11:04 Attending Provider: Russell Giraldo Primary Care Provider: Simran Oliveira Discharge Orders/Prescriptions Prescriptions: New acetaminophen [Tylenol] 325 mg Tablet 650 mg PO Q4H PRN PRN (Reason: PAIN 1-10/FEVER) Qty: 0 0RF ibuprofen 600 mg Tablet 600 mg PO Q6H PRN PRN (Reason: Pain 1-10 Or Fever) Qty: 0 0RF ciprofloxacin HCl [Cipro] 500 mg tablet 500 mg PO BID Qty: 10 0RF metronidazole 500 mg tablet 500 mg PO Q8H Qty: 15 0RF Continued valacyclovir 500 mg tablet 1 tab PO PRN PRN (Reason: herpes) Label Comments: TAKE 1 TABLET BY MOUTH EVERY 12 HOURS FOR 3 TO 5 DAYS NEEDED AT ONSET OF SYMPTOMS loratadine-pseudoephedrine [Loratadine-D] 10-240 mg tablet extended release 24 hr 1 tab PO DAILY albuterol sulfate 90 mcg/actuation HFA aerosol inhaler 2 puff INHALATION PRN PRN (Reason: sob/wheezing) Referrals / Follow Up: Simran Oliveira DO [Primary Care Provider] - Disposition Disposition (needs filled in before D/C Order can be placed): Home, Self Care
[2022-04-02] MEDS: 0.9% Saline Lock 10 ML Syringe IV (08:02)
[2022-04-02] MEDS: Sodium Chloride 0.65% 1 SPRAY SPRAY.BTL 2 SPRAY NASAL (08:09)
[2022-04-02] MEDS: Loratadine 10 MG Tablet PO (08:10)
[2022-04-02] MEDS: Pantoprazole Sodium 40 MG Tablet PO (08:12)
[2022-04-02 09:30] VITALS: BP 144/91; PULSE 89; RESP 18; TEMP 36.3; O2SAT 94
[2022-04-02] MEDS: Ciprofloxacin 400 MG/200 ML BAG 200 MG IV (09:40)
--- NOTE | 2022-04-02 13:18 | DCINST_ITS ---
Discharge Instructions Diet Discharge Diet: Light diet - advance as tolerated Activity Discharge Activity: May Not Drive (5 days) May shower in (days): 1 Additional Activity Instructions:: Pain medication may cause nausea. You should typically eat light foods as you take your pain medications. Pain medication may cause constipation. If this is a problem for you, please discuss with your doctor. Dressing / Incision Call your doctor if your incision/area has: Continuous Slow Oozing, Sudden Increased Bleeding, Increased Pain/ Swelling, Increased Redness and Foul Smelling Discharge Call your doctor if you observe: Fever of 101 or Higher Suture Line Care: Avoid Pulling/Pushing and Avoid Pinching/Bending Remove Dressing in: 2 days Cleanse incision/area with: Soap & Water Additional Dressing/Incision Instructions:: Leave operative bandaids on for 2 days. When you remove dressing, leave Steri-Strips on until your follow-up appointment, or until the Steri-Strips fall off on their own. Follow Up Care Please Follow Up With: Russell Giraldo MD When: 2 weeks. Please call [phone] Test Results: Test results from this visit will be discussed in further detail at your follow- up appointment, if applicable. Discharge Plan Admission Admit Date/Time: 03/31/22 11:04 Primary Reason for Your Visit: Choledocholithiasis, acute cholecystitis, cholangitis Attending Provider: Russell Giraldo Primary Care Provider: Simran Oliveira Instructions Additional Instructions / Restrictions: Alternate Tylenol and Ibuprofen as needed for pain Discharge Orders/Prescriptions Prescriptions: New acetaminophen [Tylenol] 325 mg Tablet 650 mg PO Q4H PRN PRN (Reason: PAIN 1-10/FEVER) Qty: 0 0RF ibuprofen 600 mg Tablet 600 mg PO Q6H PRN PRN (Reason: Pain 1-10 Or Fever) Qty: 0 0RF ciprofloxacin HCl [Cipro] 500 mg tablet 500 mg PO BID Qty: 10 0RF metronidazole 500 mg tablet 500 mg PO Q8H Qty: 15 0RF Continued valacyclovir 500 mg tablet 1 tab PO PRN PRN (Reason: herpes) Label Comments: TAKE 1 TABLET BY MOUTH EVERY 12 HOURS FOR 3 TO 5 DAYS NEEDED AT ONSET OF SYMPTOMS loratadine-pseudoephedrine [Loratadine-D] 10-240 mg tablet extended release 24 hr 1 tab PO DAILY albuterol sulfate 90 mcg/actuation HFA aerosol inhaler 2 puff INHALATION PRN PRN (Reason: sob/wheezing) Referrals / Follow Up: Russell Giraldo MD [Med Staff - Active Staff] - (Please call [phone] for a 2 week post-operative appointment in the office) Simran Oliveira DO [Primary Care Provider] - Disposition Disposition (needs filled in before D/C Order can be placed): Home, Self Care
--- NOTE | 2022-04-02 14:24 | CASEMGMT ---
Social Work SW received referral for advance directives. SW met with pt and introduced self and role of SW. SW explained both Health Care POA and Living Will. Pt appreciative of information and would like time to consider this. SW provided blank documents and SW Rack Card with advance directive information and SW number to call if she would like assistance with completing documents. NENITA Feliciano
[2022-04-02 15:30] VITALS: BP 133/89; PULSE 88; RESP 18; TEMP 36.6; O2SAT 98
== END 2022-04-02 15:55 | disposition home or self-care (01) | DRG 418 ==
LOC: ED 11:11 → MS3 12:09
PROVIDERS: Admitting Provider Surgery; Emergency Provider Emergency Medicine; PCP Family Medicine; Visit Provider Surgery
PROC: 0FT44ZZ Resection of Gallbladder, Percutaneous Endoscopic Approach (ICD-10-PCS; CPT 47610; principal; 2022-03-31 15:25)
PROC: 0FC98ZZ Extirpation of Matter from Common Bile Duct, Via Natural or Artificial Opening Endoscopic (ICD-10-PCS; CPT 43260; principal; 2022-04-01 14:25)
DX: K80.62 Calculus of gallbladder and bile duct with acute cholecystitis without obstruction (principal); K83.09 Other cholangitis; Z20.822 Contact with and (suspected) exposure to COVID-19
CPT/HCPCS: 36415; 71045; 74300; 74328; 76000; 76705; 80053; 81001; 83690; 84484; 85025; 87811; 88304; 93005; 99283; J7030; A4216; J0744; J2405

== ENCOUNTER 2022-05-21 12:54 | Day surgery (SDC) | payer MEDICARE, SELFPAY ==
[2022-05-21 13:27] VITALS: BP 144/92; PULSE 88; RESP 16; TEMP 37; O2SAT 100; BMI 33.0
[2022-05-21] MEDS: Lactated Ringers 1,000 ML 15 ML IV (13:39)
--- NOTE | 2022-05-21 13:39 | PCM.HP.STD ---
HPI - General HPI Narrative 67-year-old female here for stent removal. She had choledocholithiasis and cholangitis 4 weeks ago and is here for stent removal. [facility] Medical History (Updated 05/21/22 @ 13:[address] Russell Giraldo MD) Acute cholecystitis Asthma Hepatitis History of stress test Hx of ovarian cyst Non-smoker Seasonal allergies Wears contact lenses Wears glasses Home Medications albuterol sulfate 90 mcg/actuation aerosol inhaler 2 puff inhalation PRN PRN sob/wheezing 03/31/22 [History Last Taken Unknown] valacyclovir 500 mg tablet 1 tab PO PRN PRN herpes 03/31/22 [History Last Taken Unknown] acetaminophen 325 mg tablet (Tylenol) 650 mg PO Q4H PRN PRN PAIN 1-10/FEVER #0 tabs 04/02/22 [Rx Last Taken Unknown] ibuprofen 600 mg tablet 600 mg PO Q6H PRN PRN Pain 1-10 Or Fever #0 tabs 04/02/22 [Rx Last Taken Unknown] loratadine 10 mg capsule 10 mg PO PRN PRN ALLERGIES 05/19/22 [History Last Taken Unknown] Allergy/AdvReac Type Severity Reaction Status Date / Time Penicillins Allergy FROM Verified 05/21/22 13:21 [facility]IL[facility]OOD Surgical History (Updated 05/19/22 @ 12:10 by Ana Fink) H/O tubal ligation History of ERCP Hx of breast reduction, elective Hx of tonsillectomy Hx of wisdom tooth extraction Social History Smoking Status: Never smoker Vital Signs Vital Signs Vital Signs: 05/21/22 13:27 05/21/22 13:27 Temperature 98.6 F Temperature Source Temporal Pulse Rate 88 Respiratory Rate 16 Respiratory Pattern Normal Blood Pressure 144/92 H Blood Pressure Mean 109 Blood Pressure Source Monitor Blood Pressure Position Semi-Fowlers Blood Pressure Location Left Arm Pulse Ox 100 Oxygen Delivery Method Room Air Weight Weight: 180 lb 12.465 oz Body Mass Index (BMI) 33.0 Physical Exam Const alert and oriented x3 Resp normal respiratory effort and normal air movement Cardio regular rate and regular rhythm GI soft to palpation, non-tender and non-distended Assessment & Plan Assessment/Plan (1) Cholangitis: PLAN: Patient had a sending cholangitis and is doing well now. She is here for stent removal. I discussed ERCP in detail as well as the risks of bleeding, infection, perforation the bile duct or bowel or pancreatitis. Patient understands the risks. Russell Giraldo MD Pager: [facility] [address] [place] [address] Office:
--- NOTE | 2022-05-21 14:00 | EGD_PTH ---
PATIENT: JOVITA DREW LOC: EN U#:[id number] AGE/SX: 67/F ROOM: RE05/21/[address]: Dr. Russell Giraldo MD : 1955 BED: DIS: 05/21/2022 SPEC #: [id number] RECD: 05/21/22 15:27 STATUS: DAVE ELLIOT #: [id number] LINA: 05/21/22 14:[address]: Russell Giraldo DEPT: SURGICAL PATHOLOGY RECD BY: Lisa Babcock ENTERED: 05/22/22 08:19 SP TYPE: EGD BIOPSY OT DR: Dr. Simran Oliveira DO Tissues: Stomach, NOS Procedures: Special Stain Group II Surgery Specimen Level IV Alcian Blue/PAS (control) HEADER OPERATION: ERCP stent removal PRE-OP DIAGNOSIS: Cholangitis TISSUE SUBMITTED: Gastroesophageal junction biopsy MICROSCOPIC DIAGNOSIS Gastroesophageal junction, biopsy: Fragments of gastroesophageal mucosa with moderate chronic inflammation and changes consistent with gastroesophageal reflux disease. Intestinal metaplasia (goblet cell metaplasia) not identified. See comment. MOMO:roque 05/23/2022 COMMENT Alcian blue/PAS stain with matched control is used in the evaluation of the specimen. MICROSCOPIC DESCRIPTION Slides are reviewed. GROSS DESCRIPTION Received in fixative is one container labeled with the patient's name and designated GE junction biopsy. The specimen consists of two irregular fragments of light ta soft tissue that in aggregate measure 0.6 x 0.3 x 0.1 cm. The specimen is totally submitted in one cassette. / MOMO:roque 05/22/2022 TC:3 CPT: 98661, 97487
--- NOTE | 2022-05-21 14:00 | RAD_ITS ---
STUDY: ERCP REASON FOR EXAM: Female, 67 years old. PAIN FLUOROSCOPY TIME (if supplied): ( 13.7 seconds ) minutes/seconds. One image was submitted. TECHNIQUE: Intraoperative imaging provided for ERCP. COMPARISON: None. FINDINGS: Intraoperative imaging provided for ERCP. RAD/ERCP Biliary Only IMPRESSION: Intraoperative imaging provided for ERCP. Electronically Signed: Jeremy Velazquez MD at 14:41 EDT ,
--- NOTE | 2022-05-21 14:35 | OP.ERCP_ITS ---
Patient Name: Elvia Canales Procedure Date: 05/21/2022 1:36 PM Date of : 1955 Age: 67 Procedure: ERCP Indications: Follow-up of ascending cholangitis Providers: Russell Giraldo MD Medicines: General Anesthesia Patient Profile: This is a 67 year old female. Refer to note in patient chart for documentation of history and physical. Complications: No immediate complications. Estimated blood loss: Minimal. Procedure: Pre-Anesthesia Assessment: - Prior to the procedure, a History and Physical was performed, and patient medications and allergies were reviewed. The patient's tolerance of previous anesthesia was also reviewed. The risks and benefits of the procedure and the sedation options and risks were discussed with the patient. All questions were answered, and informed consent was obtained. Prior Anticoagulants: The patient has taken no previous anticoagulant or antiplatelet agents. After reviewing the risks and benefits, the patient was deemed in satisfactory condition to undergo the procedure. After obtaining informed consent, the scope was passed under direct vision. Throughout the procedure, the patient's blood pressure, pulse, and oxygen saturations were monitored continuously. The Duodenoscope was introduced through the mouth, and advanced to the duodenum and used to inject contrast into the bile duct. The ERCP was accomplished without difficulty. The patient tolerated the procedure well. Scope In: 2:12:56 PM Scope Out: 2:30:54 PM Total Procedure Duration Time 0 hours 17 minutes 58 seconds Findings: One stent was removed from the biliary tree using a snare. Biopsies were taken at the gastroesophageal junction through the esophagogastroduodenoscope with the cold forceps for histology. Impression: - Biopsies were taken with a cold forceps for histology at the gastroesophageal junction. - One stent was removed from the biliary tree. Recommendation: - Discharge patient to home. Procedure Code(s): --- Professional --- 72196, Endoscopic retrograde cholangiopancreatography (ERCP); with removal of foreign body(s) or stent(s) from biliary/pancreatic duct(s) 21529, Esophagogastroduodenoscopy, flexible, transoral; with biopsy, single or multiple Diagnosis Code(s): --- Professional --- Z46.59, Encounter for fitting and adjustment of other gastrointestinal appliance and device K83.0, Cholangitis CPT copyright 2017 [employer]. All rights reserved. The codes documented in this report are preliminary and upon rn recruitment review may be revised to meet current compliance requirements. Russell Giraldo MD 05/21/2022 2:34:49 PM This report has been signed electronically. Number of Addenda: 0 Note Initiated On: 05/21/2022 1:36 PM
--- NOTE | 2022-05-21 14:36 | OP.CCLET_ITS ---
05/21/2022 Simran Oliveira [address] [facility] [place] [address] [place] [address] Re : ERCP procedure for Elvia Canales Dear Dr. Oliveira This procedure was performed on Saturday, May 21, 2022. My impressions and recommendations are as follows: Impressions : - Biopsies were taken with a cold forceps for histology at the gastroesophageal junction. - One stent was removed from the biliary tree. Recommendations : - Discharge patient to home. My findings are described in the full procedure note, which is enclosed. If I can be of further assistance, please feel free to contact me at Doctor phone number(s): , Work: . Sincerely, Russell Giraldo MD 05/21/2022 2:34:49 PM This report has been signed electronically.
[2022-05-21 14:55] VITALS: BP 131/89; BP 144/92; PULSE 91; RESP 16; TEMP 37.1; O2SAT 93
[2022-05-21 15:00] VITALS: BP 121/95; BP 144/92; PULSE 90; RESP 16; O2SAT 97
[2022-05-21 15:15] VITALS: BP 126/85; BP 144/92; PULSE 80; RESP 16; O2SAT 97
[2022-05-21 15:30] VITALS: BP 134/90; BP 144/92; PULSE 77; RESP 16; O2SAT 96
[2022-05-21 15:45] VITALS: BP 129/101; BP 144/92; PULSE 78; RESP 16; TEMP 36.2; O2SAT 95
== END 2022-05-21 16:10 | disposition home or self-care (01) ==
LOC: EN 12:54 → AC 12:55
PROVIDERS: PCP Family Medicine; Referring Provider Surgery; Visit Provider Surgery
PROC: (CPT 43260; principal; 2022-05-21 13:40)
DX: Z46.59 Encounter for fitting and adjustment of other gastrointestinal appliance and device (principal); K83.09 Other cholangitis; K21.9 Gastro-esophageal reflux disease without esophagitis; J45.909 Unspecified asthma, uncomplicated; Z86.19 Personal history of other infectious and parasitic diseases; Z79.899 Other long term (current) drug therapy
CPT/HCPCS: 43275; 43239; 74328; 76000; 88305; 88313; J7120; J2405

== ENCOUNTER → 2022-09-08 | Outpatient (CLI) | payer MEDICARE, SELFPAY ==
[2022-09-08 12:04] LABS: Absolute Lymphocyte Count 2.06 X10^3/uL (0.83-4.51); Absolute Neutrophil Count 2.7 X10^3/uL (2.0-7.7); Basophil# 0.03 X10^3/uL; Basophil% 0.5 % (0-1); Eosinophil# 0.12 X10^3/uL; Eosinophils% 2.2 % (0-5); Hematocrit 41.9 % (37-47); Hemoglobin 13.6 g/dL (12.0-15.0); Lymphocyte # 2.06 X10^3/ul (0.83-4.51); Lymphocyte % 37.1 % (19-41); Mean Corp Hgb Conc 32.5 g/dL (32-36); Mean Corpuscular Hgb 31.8 pg (27.0-32.0); Mean Corpuscular Volume 97.9 fL (81-99); Mean Platelet Vol. 11.2 fl (6.2-12.0); Monocyte# 0.63 X10^3/uL; Monocyte% 11.3 % (0-10); NRBC Flagged by Analyzer 0 % (0-5); Neutrophil # 2.71 X10^3/uL (2.7-7.7); Neutrophil % 48.7 % (47-70); POSITIVE COUNT YES; RBC Distribution Width CV 13.6 % (11.6-14.6); RBC Distribution Width SD 48.7 fl (35.1-43.9); Red Blood Count 4.28 M/mm3 (4.2-5.4); White Blood Count 5.6 K/mm3 (4.4-11.0)
[2022-09-08 12:31] LABS: AST(SGOT) 14 U/L (15-37); Alanine Aminotransfer ALT/SGPT 32 U/L (13-56); Albumin, Serum 3.7 g/dL (3.2-5.0); Alkaline Phosphatase 92 U/L (45-117); Anion Gap 7 (5-15); BUN 12 mg/dL (7-18); BUN/Creat Ratio 13.9 RATIO (10-20); Calcium,Total 9.1 mg/dL (8.5-10.1); Chloride 107 mmol/L (98-107); Cholesterol 229 mg/dL (200); Creatinine, Serum 0.86 mg/dL (0.55-1.02); EST Glomerular Filtration Rate 70 mL/min (>60); Est Glom Filt Rate - Afr Amer 85 mL/min (>60); Globulin 3.8 g/dL (2.2-4.2); Glucose 106 mg/dL (74-106); High Density Lipoprotein 40 mg/dL; Potassium 4.1 mmol/L (3.5-5.1); Protein, Total 7.5 g/dL (6.4-8.2); Sodium Level 141 mmol/L (136-145); Triglycerides 203 mg/dL; Very Low Density Lipoprotein 41 mg/dL (5-40)
[2022-09-08 12:43] LABS: Platelet Estimate ADEQUATE (ADEQ)
== END | disposition home or self-care (01) ==
LOC: BFHLAB 10:08
PROVIDERS: PCP Family Medicine; Visit Provider Family Medicine
DX: Z00.00 Encounter for general adult medical examination without abnormal findings (principal); E78.5 Hyperlipidemia, unspecified; R74.8 Abnormal levels of other serum enzymes
CPT/HCPCS: 36415; 80053; 80061; 85025

== ENCOUNTER 2023-05-15 13:41 | Emergency (ER) | payer MEDICARE, SELFPAY ==
[2023-05-15 13:45] VITALS: BP 136/107; PULSE 116; RESP 18; TEMP 36.6; O2SAT 98; BMI 31.4
[2023-05-15 14:16] LABS: Mucous, Urine 0 SEEN /hpf (<or=2+); Red Blood Cells-Urine 0 SEEN /hpf (0-5)
[2023-05-15 14:18] LABS: Color, Urine Yellow (Yellow); Glucose, Dipstick Normal (Normal); Ketone-Dipstick 5 mg/dl (Negative); Leukocyte Esterase-Dipstick 25 /ul (Negative); Nitrite-Dipstick Positive (Negative); Occult Blood-Urine Negative /ul (Negative); Protein-Dipstick 30 mg/dl (Negative); Specific Gravity, Urine 1.015 (1.002-1.030); Urine Clarity Sl. Cloudy (Clear); Urine Urobilinogen 4 mg/dl (Normal)
[2023-05-15 14:19] LABS: Urine Bilirubin Dipstick 3 mg/dL (Negative)
[2023-05-15 14:21] LABS: Absolute Lymphocyte Count 1.79 X10^3/uL (0.83-4.51); Absolute Neutrophil Count 3.8 X10^3/uL (2.0-7.7); Basophil# 0.07 X10^3/uL; Basophil% 1.1 % (0-1); Eosinophil# 0.07 X10^3/uL; Eosinophils% 1.1 % (0-5); Hematocrit 45.5 % (37-47); Hemoglobin 14.8 g/dL (12.0-15.0); Lymphocyte # 1.79 X10^3/ul (0.83-4.51); Lymphocyte % 26.9 % (19-41); Mean Corp Hgb Conc 32.5 g/dL (32-36); Mean Corpuscular Hgb 31.3 pg (27.0-32.0); Mean Corpuscular Volume 96.2 fL (81-99); Mean Platelet Vol. 11.3 fl (6.2-12.0); Monocyte# 0.85 X10^3/uL; Monocyte% 12.8 % (0-10); NRBC Flagged by Analyzer 0 % (0-5); Neutrophil # 3.84 X10^3/uL (2.7-7.7); Neutrophil % 57.6 % (47-70); Platelet Count 216 K/mm3 (150-450); RBC Distribution Width CV 15.7 % (11.6-14.6); RBC Distribution Width SD 55.9 fl (35.1-43.9); Red Blood Count 4.73 M/mm3 (4.2-5.4); White Blood Count 6.7 K/mm3 (4.4-11.0)
--- NOTE | 2023-05-15 14:21 | ED.VIS.GI ---
HPI HPI - GI History of Present Illness Chief Complaint: Abd Pain Informant: patient Narrative Narrative: Patient has been having right upper quadrant and epigastric pain as well as generalized fatigue for the last couple weeks, seems to be worse after fatty meals. Pain sometimes radiates into her right mid back. She had her gallbladder out a year ago. She states in the last couple days, she has noticed being jaundiced, and having dark yellow urine. She denies any bright red blood per rectum or melena. No nausea, vomiting, fevers, confusion. She went to urgent care and was referred to the ER. She had her gallbladder done here last year. [facility] Medical History Acute cholecystitis Asthma Hepatitis History of stress test Hx of ovarian cyst Non-smoker Seasonal allergies Wears contact lenses Wears glasses Home Medications albuterol sulfate 90 mcg/actuation aerosol inhaler 2 puff inhalation PRN PRN sob/wheezing 03/31/22 [History Last Taken Unknown] loratadine 10 mg capsule 10 mg PO PRN PRN ALLERGIES 05/19/22 [History Last Taken 05/15/23] Allergy/AdvReac Type Severity Reaction Status Date / Time Penicillins Allergy FROM Verified 05/15/23 13:44 [facility]IL[facility]OOD Surgical History (Updated 05/19/22 @ 12:10 by Ana Fink) H/O tubal ligation History of ERCP Hx of breast reduction, elective Hx of tonsillectomy Hx of wisdom tooth extraction Social History Smoking Status: Never smoker ROS ROS ED Constitutional Constitutional ED: Denies chills or fever(s) Eyes Eyes: Denies change in vision or diplopia ENT ENT ED: Denies rhinorrhea or sore throat Cardiovascular Cardiovascular: Denies chest pain or palpitations Respiratory/Chest Respiratory/Chest: Denies cough or dyspnea Gastrointestinal Gastrointestinal: Reports abdominal pain; Denies diarrhea, nausea or vomiting Genitourinary Genitourinary ED: Reports other Details: Dark yellow urine see HPI ; Denies dysuria or hematuria Musculoskeletal Musculoskeletal: Reports back pain; Denies neck pain Integumentary Reports jaundice; Denies abscess or rash Neurologic Neurologic: Denies headache(s), paresthesias or weakness Psychiatric Psychiatric: Denies anxiety or suicidal thoughts EXAM Physical Exam Const Vital Signs: 05/15/23 13:45 05/15/23 16:37 05/15/23 18:00 Temperature 97.9 F Temperature Source Temporal Pulse Rate 116 H 88 88 Respiratory Rate 18 16 17 Blood Pressure 136/107 H 122/97 H 132/98 H Blood Pressure Mean 116 105 109 Pulse Ox 98 100 98 Oxygen Delivery Method Room Air Room Air Room Air 05/15/23 20:00 Temperature Temperature Source Pulse Rate 67 Respiratory Rate 14 Blood Pressure 136/92 H Blood Pressure Mean 106 Pulse Ox 98 Oxygen Delivery Method Room Air Positive well nourished and well developed General Appearance ED: well developed and NAD HEENT Reports moist mucous membranes normocephalic and atraumatic Eyes PERRL and EOMs intact bilaterally General Eye ED: Yes scleral icterus Neck full ROM and supple Resp normal respiratory effort and clear to auscultation bilaterally Cardio regular rate, regular rhythm and no murmurs Rate: Negative for tachycardic GI non-distended GI Narrative: Tender right upper quadrant and epigastrium. No guarding or rebound or palpable mass. Seems slightly bloated but soft and benign otherwise. No palpable hepatomegaly. Auscultation: normoactive bowel sounds Palpation: soft Back/Spine no CVA tenderness General Back: other FROM Extremity normal to inspection General Extremety ED: Negative for edema, pulses abnormal or tenderness General Extremity: Negative for edema or pulses abnormal Neuro oriented x3, CN's II-XII intact bilaterally and no sensory deficits noted Sensorium / Orientation: awake and alert Motor Exam: strength 5/5 throughout Psych mental status grossly normal and thought process normal Skin no rashes or lesions noted and no wounds General Skin Exam: jaundice MDM MDM MDM Narrative Medical decision making narrative: Confirm that the patient's liver enzymes are elevated including her direct bilirubin, and obtain a CT of the abdomen/pelvis with IV contrast to evaluate for the cause, it sees a 3.6 cm mass causing intrahepatic biliary ductal obstruction, which does explain all of this. I reviewed the images and the report which I agree with. I discussed with hospitalist to discuss with our dehydrogenation operator, we do not have the tools necessary here at this facility in order to provide the appropriate care to relieve her biliary obstruction. I also discussed with surgery who deferred to GI. Patient prefers to try [facility] first. Discussed with them. They do have beds, awaiting callback from physician to discuss the case and acquire acceptance. Have kept the patient up-to-date and given her analgesics, discussed with oncoming ED physician for final disposition and continued care while she is being observed here. Lab Data Attestation: I reviewed the patient's lab results. Labs: Laboratory Results - last 24 hr 05/15/23 05/15/23 05/15/23 14:08 14:08 14:08 WBC 6.7 RBC 4.73 Hgb 14.8 Hct 45.5 MCV 96.2 MCH 31.3 MCHC 32.5 RDW Std Deviation 55.9 H RDW Coeff of Pepper 15.7 H Plt Count 216 MPV 11.3 Immature Gran % (Auto) 0.500 Neut % (Auto) 57.6 Lymph % (Auto) 26.9 Butler % (Auto) 12.8 H Eos % (Auto) 1.1 Baso % (Auto) 1.1 H Absolute Neuts (auto) 3.8 Absolute Lymphs (auto) 1.79 Nucleated RBC % 0 Sodium 135 L Cancelled Potassium 4.1 Cancelled Chloride 105 Carbon Dioxide Anion Gap BUN Creatinine Estim Creat Clear Calc Est GFR (MDRD) Af Amer Est GFR (MDRD) Non-Af BUN/Creatinine Ratio Glucose Calcium Total Bilirubin Direct Bilirubin AST ALT Alkaline Phosphatase Total Protein Albumin Globulin Albumin/Globulin Ratio Lipase Urine Color Urine Clarity Urine pH Ur Specific Newton Urine Protein Urine Glucose (UA) Urine Ketones Urine Occult Blood Urine Nitrite Urine Bilirubin Urine Urobilinogen Ur Leukocyte Esterase Urine RBC Urine WBC Ur Squamous Epith Cells Urine Bacteria Urine Mucus 05/15/23 05/15/23 05/15/23 14:08 14:08 14:08 WBC RBC Hgb Hct MCV MCH MCHC RDW Std Deviation RDW Coeff of Pepper Plt Count MPV Immature Gran % (Auto) Neut % (Auto) Lymph % (Auto) Butler % (Auto) Eos % (Auto) Baso % (Auto) Absolute Neuts (auto) Absolute Lymphs (auto) Nucleated RBC % Sodium Potassium Chloride Cancelled Carbon Dioxide 25.0 Cancelled Anion Gap 5 Cancelled BUN 11 Creatinine Estim Creat Clear Calc Est GFR (MDRD) Af Amer Est GFR (MDRD) Non-Af BUN/Creatinine Ratio Glucose Calcium Total Bilirubin Direct Bilirubin AST ALT Alkaline Phosphatase Total Protein Albumin Globulin Albumin/Globulin Ratio Lipase Urine Color Urine Clarity Urine pH Ur Specific Newton Urine Protein Urine Glucose (UA) Urine Ketones Urine Occult Blood Urine Nitrite Urine Bilirubin Urine Urobilinogen Ur Leukocyte Esterase Urine RBC Urine WBC Ur Squamous Epith Cells Urine Bacteria Urine Mucus 05/15/23 05/15/23 05/15/23 14:08 14:08 14:08 WBC RBC Hgb Hct MCV MCH MCHC RDW Std Deviation RDW Coeff of Pepper Plt Count MPV Immature Gran % (Auto) Neut % (Auto) Lymph % (Auto) Butler % (Auto) Eos % (Auto) Baso % (Auto) Absolute Neuts (auto) Absolute Lymphs (auto) Nucleated RBC % Sodium Potassium Chloride Carbon Dioxide Anion Gap BUN Cancelled Creatinine 1.10 H Cancelled Estim Creat Clear Calc 39.25 Est GFR (MDRD) Af Amer 64 Cancelled Est GFR (MDRD) Non-Af 53 L BUN/Creatinine Ratio Glucose Calcium Total Bilirubin Direct Bilirubin AST ALT Alkaline Phosphatase Total Protein Albumin Globulin Albumin/Globulin Ratio Lipase Urine Color Urine Clarity Urine pH Ur Specific Newton Urine Protein Urine Glucose (UA) Urine Ketones Urine Occult Blood Urine Nitrite Urine Bilirubin Urine Urobilinogen Ur Leukocyte Esterase Urine RBC Urine WBC Ur Squamous Epith Cells Urine Bacteria Urine Mucus 05/15/23 05/15/23 05/15/23 14:08 14:08 14:08 WBC RBC Hgb Hct MCV MCH MCHC RDW Std Deviation RDW Coeff of Pepper Plt Count MPV Immature Gran % (Auto) Neut % (Auto) Lymph % (Auto) Butler % (Auto) Eos % (Auto) Baso % (Auto) Absolute Neuts (auto) Absolute Lymphs (auto) Nucleated RBC % Sodium Potassium Chloride Carbon Dioxide Anion Gap BUN Creatinine Estim Creat Clear Calc Est GFR (MDRD) Af Amer Est GFR (MDRD) Non-Af Cancelled BUN/Creatinine Ratio 10.0 Cancelled Glucose 107 H Cancelled Calcium 10.2 H Total Bilirubin Direct Bilirubin AST ALT Alkaline Phosphatase Total Protein Albumin Globulin Albumin/Globulin Ratio Lipase Urine Color Urine Clarity Urine pH Ur Specific Newton Urine Protein Urine Glucose (UA) Urine Ketones Urine Occult Blood Urine Nitrite Urine Bilirubin Urine Urobilinogen Ur Leukocyte Esterase Urine RBC Urine WBC Ur Squamous Epith Cells Urine Bacteria Urine Mucus 05/15/23 05/15/23 05/15/23 14:08 14:08 14:08 WBC RBC Hgb Hct MCV MCH MCHC RDW Std Deviation RDW Coeff of Pepper Plt Count MPV Immature Gran % (Auto) Neut % (Auto) Lymph % (Auto) Butler % (Auto) Eos % (Auto) Baso % (Auto) Absolute Neuts (auto) Absolute Lymphs (auto) Nucleated RBC % Sodium Potassium Chloride Carbon Dioxide Anion Gap BUN Creatinine Estim Creat Clear Calc Est GFR (MDRD) Af Amer Est GFR (MDRD) Non-Af BUN/Creatinine Ratio Glucose Calcium Cancelled Total Bilirubin 9.60 H Cancelled Direct Bilirubin 8.11 H AST 233 H Cancelled ALT 492 H Alkaline Phosphatase Total Protein Albumin Globulin Albumin/Globulin Ratio Lipase Urine Color Urine Clarity Urine pH Ur Specific Newton Urine Protein Urine Glucose (UA) Urine Ketones Urine Occult Blood Urine Nitrite Urine Bilirubin Urine Urobilinogen Ur Leukocyte Esterase Urine RBC Urine WBC Ur Squamous Epith Cells Urine Bacteria Urine Mucus 05/15/23 05/15/23 05/15/23 14:08 14:08 14:08 WBC RBC Hgb Hct MCV MCH MCHC RDW Std Deviation RDW Coeff of Pepper Plt Count MPV Immature Gran % (Auto) Neut % (Auto) Lymph % (Auto) Butler % (Auto) Eos % (Auto) Baso % (Auto) Absolute Neuts (auto) Absolute Lymphs (auto) Nucleated RBC % Sodium Potassium Chloride Carbon Dioxide Anion Gap BUN Creatinine Estim Creat Clear Calc Est GFR (MDRD) Af Amer Est GFR (MDRD) Non-Af BUN/Creatinine Ratio Glucose Calcium Total Bilirubin Direct Bilirubin AST ALT Cancelled Alkaline Phosphatase 651 H Cancelled Total Protein 8.4 H Cancelled Albumin 3.9 Globulin Albumin/Globulin Ratio Lipase Urine Color Urine Clarity Urine pH Ur Specific Newton Urine Protein Urine Glucose (UA) Urine Ketones Urine Occult Blood Urine Nitrite Urine Bilirubin Urine Urobilinogen Ur Leukocyte Esterase Urine RBC Urine WBC Ur Squamous Epith Cells Urine Bacteria Urine Mucus 05/15/23 05/15/23 14:08 14:08 WBC RBC Hgb Hct MCV MCH MCHC RDW Std Deviation RDW Coeff of Pepper Plt Count MPV Immature Gran % (Auto) Neut % (Auto) Lymph % (Auto) Butler % (Auto) Eos % (Auto) Baso % (Auto) Absolute Neuts (auto) Absolute Lymphs (auto) Nucleated RBC % Sodium Potassium Chloride Carbon Dioxide Anion Gap BUN Creatinine Estim Creat Clear Calc Est GFR (MDRD) Af Amer Est GFR (MDRD) Non-Af BUN/Creatinine Ratio Glucose Calcium Total Bilirubin Direct Bilirubin AST ALT Alkaline Phosphatase Total Protein Albumin Cancelled Globulin 4.5 H Cancelled Albumin/Globulin Ratio 0.9 Lipase 47 Urine Color Yellow Urine Clarity Sl. Cloudy Urine pH 6.0 Ur Specific Newton 1.015 Urine Protein 30 H Urine Glucose (UA) Normal Urine Ketones 5 H Urine Occult Blood Negative Urine Nitrite Positive H Urine Bilirubin 3 H Urine Urobilinogen 4 H Ur Leukocyte Esterase 25 H Urine RBC 0 SEEN Urine WBC 0-5 SEEN Ur Squamous Epith Cells 0-5 SEEN Urine Bacteria 1+ Urine Mucus 0 SEEN Radiography Diagnostic Testing: Clinical Impression(s) from Imaging Studies Abdomen/Pelvis CT 05/15/23 14:57 IMPRESSION: 1. 3.6 cm central liver mass obstructing the intrahepatic biliary ducts. 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 2. Enlarged hepatoduodenal lymph nodes suggestive of metastatic disease. 3. Diverticulosis coli Electronically Signed: Vineet Langston MD at 16:01 EDT , Management Discussion w/another healthcare provider: Hospitalist and Freight Engineer Discharge Plan Triage Chief Complaint: Abd Pain ED Provider: Rolando Miller Dx/Rx/DC Orders Clinical Impression: Bile duct obstruction, intrahepatic, Liver mass Prescriptions: No Action albuterol sulfate 90 mcg/actuation HFA aerosol inhaler 2 puff INHALATION PRN PRN (Reason: sob/wheezing) loratadine 10 mg Capsule 10 mg PO PRN PRN (Reason: ALLERGIES) Primary Care Provider: Simran Oliveira Referrals: Simran Oliveira DO [Primary Care Provider] - Disposition Disposition: Acute Care Hospital
[2023-05-15 14:34] LABS: ALB/GLOB Ratio 0.9 RATIO (0.9-2.4); AST(SGOT) 233 U/L (15-37); Alanine Aminotransfer ALT/SGPT 492 U/L (13-56); Albumin, Serum 3.9 g/dL (3.2-5.0); Alkaline Phosphatase 651 U/L (45-117); Anion Gap 5 (5-15); BUN 11 mg/dL (7-18); Bacteria 1+ /hpf (None Seen); Calcium,Total 10.2 mg/dL (8.5-10.1); Chloride 105 mmol/L (98-107); EST Glomerular Filtration Rate 53 mL/min (>60); Est Glom Filt Rate - Afr Amer 64 mL/min (>60); Estimated Creatinine Clearance 39.25 ml/min; Globulin 4.5 g/dL (2.2-4.2); Glucose 107 mg/dL (74-106); Potassium 4.1 mmol/L (3.5-5.1); Protein, Total 8.4 g/dL (6.4-8.2); Sodium Level 135 mmol/L (136-145); Squamous Epithelial Cells - UA 0-5 SEEN /hpf (5-10); White Blood Cells 0-5 SEEN /hpf (0-5)
[2023-05-15 14:42] LABS: Bilirubin, Direct 8.11 mg/dL (0.00-0.30); Lipase 47 U/L (13-75)
[2023-05-15] MEDS: 0.9% Normal Saline (1000mL) 1,000 ML 125 ML IV ×2 (14:50→23:01)
--- NOTE | 2023-05-15 14:57 | CT_ITS ---
EXAM: CT ABDOMEN AND PELVIS WITH INTRAVENOUS CONTRAST CLINICAL INDICATION: upper abd pain, jaundice TECHNIQUE: Helically acquired images were obtained of the abdomen and pelvis with intravenous contrast. This CT exam was performed using one or more of the following dose reduction techniques: automated exposure control, adjustment of the mA and/or kV according to patient size, and/or use of iterative reconstruction technique. CONTRAST: IV 100mL Isovue-300 COMPARISON: No relevant prior studies available. FINDINGS: LOWER THORAX: Normal. Lung bases are clear. No cardiomegaly. No pericardial effusion. ABDOMEN: LIVER: Normal. Homogeneous. No focal mass. GALLBLADDER AND BILE DUCTS: Ill-defined 3.6 cm lesion within hepatic segment 4B abutting the deb hepatis and associated with dilated intrahepatic bile ducts. Finding may represent primary or metastatic liver neoplasm or possibly a Klatskin tumor. Common bile duct is small in size. Gallbladder is absent. PANCREAS: Normal. No focal cystic or solid mass. SPLEEN: Normal. Normal size without focal cystic or solid mass. ADRENALS: Normal. No nodules. KIDNEYS AND URETERS: Normal. Normal renal size and position. No hydronephrosis. STOMACH AND BOWEL: Diverticulosis of the colon noted without evidence of acute diverticulitis. PELVIS: APPENDIX: Surgical clips at the base of the cecum consistent with appendectomy. BLADDER: Normal. REPRODUCTIVE: Unremarkable as visualized. No mass. ABDOMEN and PELVIS: INTRAPERITONEAL SPACE: Normal. No ascites or other fluid collection. No free air. BONES/JOINTS: No suspicious lytic or blastic abnormality. SOFT TISSUES: Small fat-containing epigastric hernia. VASCULATURE: Normal. Abdominal aorta is non-dilated. LYMPH NODES: Enlarged lymph nodes along the hepatoduodenal ligament suggestive of metastatic disease. CT/Abdomen/Pelvis W IV Cont ONLY IMPRESSION: 1. 3.6 cm central liver mass obstructing the intrahepatic biliary ducts. 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 2. Enlarged hepatoduodenal lymph nodes suggestive of metastatic disease. 3. Diverticulosis coli Electronically Signed: Vineet Langston MD at 16:01 EDT ,
[2023-05-15 16:37] VITALS: BP 122/97; PULSE 88; RESP 16; O2SAT 100
[2023-05-15 18:00] VITALS: BP 132/98; PULSE 88; RESP 17; O2SAT 98
[2023-05-15 20:00] VITALS: BP 136/92; PULSE 67; RESP 14; O2SAT 98
--- NOTE | 2023-05-15 20:13 | CM.ED ---
Social Work Pt requested to complete advance directives. SW introduced self and role to patient. Pt reports she had began HCPOA/LW papers last year but never completed. Pt is concerned due to medical conditions and wishes to complete paperwork. SW provided advance directives packet and explained documents. Pt filled out POA details. SW had patient's nurse provide second witness to patient's signature. SW made copies and provided originals/copies to patient. SW placed a copy on patient's chart. Nika Hernandez MSW, [employer]
[2023-05-15 22:00] VITALS: BP 133/85; PULSE 80; RESP 14; O2SAT 98
[2023-05-16] VITALS: BP 118/91; PULSE 88; RESP 17; TEMP 36.2; O2SAT 98
--- NOTE | 2023-05-16 00:08 | ED.RN ---
[address] Vallejo [phone]
[2023-05-16 02:00] VITALS: BP 123/88; PULSE 72; RESP 16; O2SAT 98
== END 2023-05-16 03:17 | disposition short-term general hospital (02) ==
PROVIDERS: Emergency Provider Emergency Medicine; PCP Family Medicine; Visit Provider Emergency Medicine
DX: K83.1 Obstruction of bile duct (principal); R16.0 Hepatomegaly, not elsewhere classified; J45.909 Unspecified asthma, uncomplicated; R17 Unspecified jaundice
CPT/HCPCS: 74177; 80053; 81001; 82248; 83690; 85025; 96360; 96361; 99284; J7030; Q9967; A4216

== ENCOUNTER → 2023-06-29 | Outpatient (CLI) | payer MEDICARE, SELFPAY ==
--- NOTE | 2023-06-29 10:42 | VDUE_ITS ---
Reason For Study: Right arm swelling Right Proximal Left Proximal Right jugular vein is spontaneous, widely Left subclavian vein is spontaneous, widely patent, phasic, with no intraluminal patent, phasic, with no intraluminal echogenicity noted. echogenicity noted. Port noted in the Internal Jugular vein and Subclacian vein. Acute DVT is noted in the right Subclavian vein, Axillary vein and Brachial vein prox- mid. Veins are NONCOMPRESSIBLE and dilated. Acute superficial vein thrombosis is noted in the right Basilic vein from origin to antecube and Median Cubital vein. Veins are NONCOMPRESSIBLE and dilated. Right Lower Arm Right radial vein is compressible. Right ulnar vein is compressible. Right Arm Right cephalic vein is compressible. Patient Safety Preliminary report given Asya RN. VL/Venous Duplex US, Unilateral Interpretation Summary Acute deep vein thrombosis noted in the right subclavian vein, axillary vein, b rachial vein Acute superficial vein thrombosis noted in the right basilic vein and median cu bital vein Ordering Physician: Norm Wang Referring Physician: Simran Oliveira Performed By: Leslie Gan RVT ???
== END | disposition home or self-care (01) ==
PROVIDERS: PCP Family Medicine; Referring Provider Internal Medicine Hematology & Oncology; Visit Provider Internal Medicine Hematology & Oncology
DX: M79.89 Other specified soft tissue disorders (principal)
CPT/HCPCS: 93971